=== PATIENT | male | born 1980 | race Two or more races ===

== ENCOUNTER 2019-03-29 09:37 | Emergency (ER) | payer OTHER ==
[~2019-03-29] VITALS: Ht 165.1 cm; Wt 99.8 kg
--- NOTE | 2019-03-29 10:10 | PHYS DOC ---
Past History Past Medical History: No Pertinent History Past Surgical History: No Surgical History Alcohol Use: None Drug Use: None Adult General Chief Complaint Chief Complaint: BACK PAIN OR INJURY HPI HPI 38-year-old male presents with back pain. He will pickup one week ago and from that before and he has had back pain in his lower thoracic/upper lumbar area. He states that if he stands up straight all the time it does not bother him, but when he bends over to lift something up and then stands back up he has stabbing pain in the same area. He then has to keep his back straight to get the pain to go away. If he bends forward even without lifting anything he continues to hurt. He does not remember any particular inciting event. He denies any trauma or overuse. He is never had back pain like this before. He denies numbness, tingling, or weakness. The pain does not radiate anywhere but that area. He denies fever or chills. Review of Systems Review of Systems Constitutional: Denies fever or chills [] Eyes: Denies change in visual acuity, redness, or eye pain [] HENT: Denies nasal congestion or sore throat [] Respiratory: Denies cough or shortness of breath [] Cardiovascular: No additional information not addressed in HPI [] GI: Denies abdominal pain, nausea, vomiting, bloody stools or diarrhea [] : Denies dysuria or hematuria [] Musculoskeletal: Upper lumbar pain[] Integument: Denies rash or skin lesions [] Neurologic: Denies headache, focal weakness or sensory changes [] Endocrine: Denies polyuria or polydipsia [] All other systems were reviewed and found to be within normal limits, except as documented in this note. Allergies Allergies Allergies Coded Allergies Type Severity Reaction Last Updated Verified No Known Drug Allergies 03/29/19 No Physical Exam Physical Exam Constitutional: Well developed, well nourished, obese, no acute distress, non- toxic appearance. [] HENT: Normocephalic, atraumatic, bilateral external ears normal, oropharynx moist, no oral exudates, nose normal. [] Eyes: PERRLA, EOMI, conjunctiva normal, no discharge. [] Neck: Normal range of motion, no tenderness, supple, no stridor. [] Cardiovascular:Heart rate regular rhythm, no murmur [] Lungs & Thorax: Bilateral breath sounds clear to auscultation [] Abdomen: Bowel sounds normal, soft, no tenderness, no masses, no pulsatile masses. [] Skin: Warm, dry, no erythema, no rash. [] Back: No tenderness, no CVA tenderness. [] Extremities: No tenderness, no cyanosis, no clubbing, ROM intact, no edema. [] Neurologic: Alert and oriented X 3, normal motor function, normal sensory function, no focal deficits noted. [] Psychologic: Affect normal, judgement normal, mood normal. [] Current Patient Data Vital Signs Vital Signs Date Time Temp Pulse Resp B/P (MAP) Pulse Ox O2 Delivery O2 Flow Rate FiO2 03/29/19 09:51 98.3 81 16 97 Room Air EKG EKG [] Radiology/Procedures Radiology/Procedures [] Impressions: THORACOLUMBAR 2V History: Lower thoracic and upper lumbar pain Comparison: None. Findings: 2 views of the thoracolumbar spine are submitted. It should be noted the entirety of the superior thoracic and inferior lumbar spine were not included. Visualized thoracic and lumbar vertebral body stature is maintained. AP alignment is within normal limits. No acute osseous abnormality is identified by radiographs. Impression: 1. No acute osseous abnormality is identified by radiographs of the visualized thoracolumbar spine. Electronically signed by: Joseph Victoria MD (03/29/2019 10:34 AM) [id number] DICTATED AND SIGNED BY: JOSEPH VICTORIA MD DATE: 03/29/19 1034 CC: MARTHA MCKEON DO; PCP,NO ~ Course & Med Decision Making Course & Med Decision Making Pertinent Labs and Imaging studies reviewed. (See chart for details) The pain appears to be around T12, L1. The patient is not point tender with palpation. The pain apparently seems to occur with bending over and lifting. It does not have to be a heavy object. The patient's x-rays are unremarkable. This is likely a bruised or bulging disc reflex spasm. I will advise the patient can take ibuprofen as needed. He will also consider follow-up with his PCP and physical therapy. [] Dragon Disclaimer Dragon Disclaimer This electronic medical record was generated, in whole or in part, using a voice recognition dictation system. Departure Departure: Impression: Primary Impression: Thoracic back pain Disposition: HOME, SELF-CARE Condition: STABLE Referrals: PCP,NO (PCP) Patient Instructions: Thoracic Strain, [id number] Additional Instructions: Try taking 600 mg of ibuprofen 3 times a day for one week. If this does not improve her symptoms, consider talking to her PCP about physical therapy. Problem Qualifiers Primary Impression: Thoracic back pain Chronicity: acute Back pain laterality: midline Qualified Codes: M54.6 - Pain in thoracic spine MARTHA MCKEON DO Mar 29, 2019 10:10
--- NOTE | 2019-03-29 10:37 | RAD ---
THORACOLUMBAR 2V History: Lower thoracic and upper lumbar pain Comparison: None. Findings: 2 views of the thoracolumbar spine are submitted. It should be noted the entirety of the superior thoracic and inferior lumbar spine were not included. Visualized thoracic and lumbar vertebral body stature is maintained. AP alignment is within normal limits. No acute osseous abnormality is identified by radiographs. Impression: 1. No acute osseous abnormality is identified by radiographs of the visualized thoracolumbar spine. Electronically signed by: Cristino Reddy MD (03/29/2019 10:34 AM) [id number]
[2019-03-29 11:38] VITALS: BP 130/80
== END 2019-03-29 11:38 | disposition home or self-care (01) ==
LOC: ER 09:37
DX: M54.6 Pain in thoracic spine (principal); M54.5 Low back pain
CPT/HCPCS: 72080; 99284